=== PATIENT | female | born 1990 | race Caucasian/White ===

== ENCOUNTER 2018-11-14 11:32 | Emergency (ER) | payer SELFPAY ==
[2018-11-14] MEDS ORDERED: HYDROCODONE/APAP 7.5/325 MG TAB ONE (12:02)
--- NOTE | 2018-11-14 12:28 | RAD REPORT ---
EXAM DESCRIPTION: RAD - Chest Single View - 11/14/2018 12:16 pm CLINICAL HISTORY: Right-sided chest pain, blunt force trauma to the ribcage COMPARISON: None. TECHNIQUE: AP portable chest image was obtained . FINDINGS: No pulmonary contusion or acute lung parenchymal process. Interstitial markings are slight ly more pronounced in the left base. This is probably baseline for the patient given the absence of a ny left-sided symptoms. Heart and vasculature are normal. No measurable pleural effusion and no pneum othorax. No gross rib deformity seen. Right ribcage is detailed in separate report. No acute aortic f indings suspected. IMPRESSION: No acute cardiopulmonary process.
--- NOTE | 2018-11-14 12:31 | RAD REPORT ---
EXAM DESCRIPTION: Ribs Right - 11/14/2018 12:16 pm CLINICAL HISTORY: Right-sided chest pain, blunt force trauma to the right ribcage COMPARISON: None. FINDINGS: No displaced rib fracture is evident. No aggressive rib lesion. No underlying pneumothorax, effusion, infiltrate or pulmonary contusion. IMPRESSION: Negative right rib series.
--- NOTE | 2018-11-14 12:42 | ER ---
Nurse's Notes [facility] Name: Nathalie Steel Age: 28 yrs Sex: Female : 1990 Arrival Date: 11/14/2018 Time: 11:33 Bed 12 Private MD: Diagnosis: Contusion of right front wall of thorax Presentation: 11/14 11:35 Presenting complaint: Patient states: Was moving 2x4s when a piece hit her in the Right sg rib area just under the breast, pt reports pain increases with deep breathing cough, any movement, denies wound or bruising at this time. Transition of care: patient was not received from another setting of care. Onset of symptoms was November 14, 2018. Risk Assessment: Do you want to hurt yourself or someone else? Patient reports no desire to harm self or others. Initial Sepsis Screen: Does the patient meet any 2 criteria? No. Patient's initial sepsis screen is negative. Does the patient have a suspected source of infection? No. Patient's initial sepsis screen is negative. Care prior to arrival: None. 11:35 Method Of Arrival: Ambulatory sg 11:35 Acuity: SVETA 4 sg Historical: - Allergies: 11:58 No Known Allergies; sg - Home Meds: 11:39 None [Active]; sg - PMHx: 11:39 None; sg - Immunization history:: Adult Immunizations not up to date. - Social history:: Smoking status: Patient uses tobacco products. - Ebola Screening: : Patient negative for fever greater than or equal to 101.5 degrees Fahrenheit, and additional compatible Ebola Virus Disease symptoms Patient denies exposure to infectious person Patient denies travel to an Ebola-affected area in the 21 days before illness onset No symptoms or risks identified at this time. Screenin:15 Abuse screen: Denies threats or abuse. Denies injuries from another. Nutritional hb screening: No deficits noted. Tuberculosis screening: No symptoms or risk factors identified. Fall Risk None identified. Assessment: 11:45 General: Appears in no apparent distress. comfortable, well groomed, well developed, sg well nourished, Behavior is calm, cooperative, appropriate for age. Pain: Complains of pain in right lateral anterior chest and right breast Quality of pain is described as aching, tender. Neuro: Level of Consciousness is awake, alert, obeys commands, Oriented to person, place, time, situation, Speech is normal. Cardiovascular: Capillary refill is brisk in bilateral fingers Patient's skin is warm and dry. Chest pain is denied. Respiratory: Airway is patent Respiratory effort is even, unlabored, Respiratory pattern is regular, symmetrical, Breath sounds are clear. GI: Abdomen is round non-distended. : No signs and/or symptoms were reported regarding the genitourinary system. EENT: No signs and/or symptoms were reported regarding the EENT system. Derm: Skin is pink, warm \T\ dry. Musculoskeletal: No signs and/or symptoms reported regarding the musculoskeletal system. 12:45 Reassessment: Patient appears in no apparent distress at this time. Patient and/or hb family updated on plan of care and expected duration. Pain level reassessed. Patient is alert, oriented x 3, equal unlabored respirations, skin warm/dry/pink. Vital Signs: 11:37 Pulse 92; Resp 17; Temp 97.2; Pulse Ox 96% on R/A; Weight 59.87 kg; Height 5 ft. 4 in. sg (162.56 cm); Pain 10/10; 13:00 BP 132 / 78; Pulse 83; Resp 15; Pulse Ox 100% on R/A; hb 11:37 Body Mass Index 22.66 (59.87 kg, 162.56 cm) sg ED Course: 11:33 Patient arrived in ED. mr 11:37 Triage completed. sg 11:37 Arm band placed on. sg 11:39 Ester John FNP-C is PHCP. kb 11:39 Pradeep Tang MD is Attending Physician. kb 11:50 Phi Perez, MONA is Primary Nurse. sg 12:00 Call light in reach. hb 12:12 X-ray completed. Patient tolerated procedure well. sg4 12:12 Ribs Right XRAY In Process Unspecified. EDMS 12:12 Chest Single View XRAY In Process Unspecified. EDMS 13:08 No provider procedures requiring assistance completed. Patient did not have IV access hb during this emergency room visit. Administered Medications: 11:51 Drug: [place] (7.5 mg-325 mg) 1 tabs Route: PO; sg 12:45 Follow up: Response: No adverse reaction; Pain is decreased hb Outcome: 12:41 Discharge ordered by . kb 13:08 Discharged to home ambulatory. hb 13:08 Condition: stable 13:08 Discharge instructions given to patient, Instructed on discharge instructions, follow up and referral plans. medication usage, Demonstrated understanding of instructions, follow-up care, medications, Prescriptions given X 2. 13:09 Patient left the ED. Signatures: Dispatcher [employer] EDOH Ester John, VALVE LAPPER-C VALVE LAPPER-Phi Rangel RN RN Opal Luo Melissa Hamilton RN RN hb Garcia, [facility] [place]
--- NOTE | 2018-11-14 12:42 | EDPHYS ---
Physician Documentation [facility] Name: Nathalie Steel Age: 28 yrs Sex: Female : 1990 Arrival Date: 11/14/2018 Time: 11:33 Bed 12 Private MD: ED Physician Pradeep Tnag HPI: 11/14 11:53 This 28 yrs old Female presents to ER via Ambulatory with complaints of Rib kb Pain. 11:53 The patient or guardian reports chest pain that is located primarily in the anterior kb chest wall. Onset: The symptoms/episode began/occurred 2 day(s) ago. The pain does not radiate. Associated signs and symptoms: The patient has no apparent associated signs or symptoms. The chest pain is described as aching. Duration: The patient or guardian reports a single episode. Modifying factors: The symptoms are alleviated by nothing. the symptoms are aggravated by breathing, cough, movement, palpation of area. Severity of pain: At its worst the pain was moderate severe in the emergency department the pain is unchanged. The patient has not experienced similar symptoms in the past. The patient has not recently seen a physician. Pt reports a 2x4 fell and hit her in the right side of chest, just below breast 2 days ago. States pain is getting worse instead of better. Historical: - Allergies: 11:58 No Known Allergies; sg - Home Meds: 11:39 None [Active]; sg - PMHx: 11:39 None; sg - Immunization history:: Adult Immunizations not up to date. - Social history:: Smoking status: Patient uses tobacco products. - Ebola Screening: : Patient negative for fever greater than or equal to 101.5 degrees Fahrenheit, and additional compatible Ebola Virus Disease symptoms Patient denies exposure to infectious person Patient denies travel to an Ebola-affected area in the 21 days before illness onset No symptoms or risks identified at this time. ROS: 11:50 Constitutional: Negative for fever, chills, and weight loss, Respiratory: Negative for kb shortness of breath, cough, wheezing, and pleuritic chest pain, Abdomen/GI: Negative for abdominal pain, nausea, vomiting, diarrhea, and constipation, Back: Negative for injury and pain, : Negative for injury, bleeding, discharge, and swelling, MS/Extremity: Negative for injury and deformity, Skin: Negative for injury, rash, and discoloration, Neuro: Negative for headache, weakness, numbness, tingling, and seizure. 11:50 Cardiovascular: Positive for chest pain, of the right breast, Negative for edema, orthopnea, palpitations, paroxysmal nocturnal dyspnea. Exam: 11:50 Constitutional: This is a well developed, well nourished patient who is awake, alert, kb and in no acute distress. Head/Face: Normocephalic, atraumatic. Cardiovascular: Regular rate and rhythm with a normal S1 and S2. No gallops, murmurs, or rubs. Normal PMI, no JVD. No pulse deficits. Respiratory: Lungs have equal breath sounds bilaterally, clear to auscultation and percussion. No rales, rhonchi or wheezes noted. No increased work of breathing, no retractions or nasal flaring. Abdomen/GI: Soft, non-tender, with normal bowel sounds. No distension or tympany. No guarding or rebound. No evidence of tenderness throughout. Skin: Warm, dry with normal turgor. Normal color with no rashes, no lesions, and no evidence of cellulitis. MS/ Extremity: Pulses equal, no cyanosis. Neurovascular intact. Full, normal range of motion. Neuro: Awake and alert, GCS 15, oriented to person, place, time, and situation. Cranial nerves II-XII grossly intact. Motor strength 5/5 in all extremities. Sensory grossly intact. Cerebellar exam normal. Normal gait. 11:50 Chest/axilla: Inspection: normal, Palpation: tenderness, that is moderate, of the right breast. Vital Signs: 11:37 Pulse 92; Resp 17; Temp 97.2; Pulse Ox 96% on R/A; Weight 59.87 kg; Height 5 ft. 4 in. sg (162.56 cm); Pain 10/10; 13:00 BP 132 / 78; Pulse 83; Resp 15; Pulse Ox 100% on R/A; hb 11:37 Body Mass Index 22.66 (59.87 kg, 162.56 cm) sg MDM: 11:40 Patient medically screened. kb 11:50 Data reviewed: vital signs, nurses notes. Data interpreted: Pulse oximetry: on room air kb is 96 %. Interpretation: normal. 12:41 Counseling: I had a detailed discussion with the patient and/or guardian regarding: the kb historical points, exam findings, and any diagnostic results supporting the discharge/admit diagnosis, radiology results, the need for outpatient follow up, a family practitioner, to return to the emergency department if symptoms worsen or persist or if there are any questions or concerns that arise at home. 11/14 11:40 Order name: Ribs Right XRAY; Complete Time: 12:40 kb 11/14 11:40 Order name: Chest Single View XRAY; Complete Time: 12:31 kb Administered Medications: 11:51 Drug: [place] (7.5 mg-325 mg) 1 tabs Route: PO; sg 12:45 Follow up: Response: No adverse reaction; Pain is decreased hb Disposition: 11/14/18 12:41 Discharged to Home. Impression: Contusion of right front wall of thorax. - Condition is Stable. - Discharge Instructions: Chest Contusion, [id number]. - Prescriptions for Cyclobenzaprine 10 mg Oral Tablet - take 1 tablet by ORAL route every 8 hours As needed; 21 tablet. Diclofenac Sodium 75 mg Oral Tablet, Delayed Release (E.C.) - take 1 tablet by ORAL route 2 times per day As needed; 30 tablet. - Medication Reconciliation Form, Thank You Letter, Antibiotic Education, Prescription Opioid Use form. - Follow up: Emergency Department; When: As needed; Reason: Worsening of condition. Follow up: Private Physician; When: 2 - 3 days; Reason: Recheck today's complaints, Continuance of care, Re-evaluation by your physician. Addendum: 11/16/2018 07:38 Co-signature as Attending Physician, Pradeep Tang MD I agree with the assessment and c carrero plan of care. Signatures: Dispatcher [employer] EDFL Ester John, ISMA-C RESTAURANT CREW-Phi Rangel RN RN sg Anderson, Corey, MD MD cha Baxter, Heather, RN RN Corrections: (The following items were deleted from the chart) 11/14 13:09 12:41 11/14/2018 12:41 Discharged to Home. Impression: Contusion of right front wall of hb thorax. Condition is Stable. Forms are Medication Reconciliation Form, Thank You Letter, Antibiotic Education, Prescription Opioid Use. Follow up: Emergency Department; When: As needed; Reason: Worsening of condition. Follow up: Private Physician; When: 2 - 3 days; Reason: Recheck today's complaints, Continuance of care, Re-evaluation by your physician. kb
== END 2018-11-14 13:09 | disposition home or self-care (01) ==
LOC: ER 11:32
DX: S20.219A Contusion of unspecified front wall of thorax, initial encounter (principal); W20.8XXA Other cause of strike by thrown, projected or falling object, initial encounter
CPT/HCPCS: 71045; 99283